=== PATIENT | female | born 2000 | race Caucasian/White ===

== ENCOUNTER 2020-08-04 18:08 | Emergency (ER) | payer OTHER, SELFPAY ==
--- NOTE | ~2020-08-04 | XR_ITS ---
EXAMINATION: XR foot LT min 3V DATE: 08/04/2020 18:20 INDICATION: Dorsal and lateral left foot and posterior ankle pain TECHNIQUE: Dorsoplantar, two oblique and lateral views of the left foot were obtained. COMPARISON: Left ankle radiographs dated 03/18/2016 FINDINGS: Alignment is normal. No fracture. Joint spaces are normal. There are few small corticated ossicles pr ojecting posterior to the left ankle which could represent either degenerative loose bodies in the po sterior recess of the joint or heterotopic ossification related to chronic soft tissue injury. Soft t issues are otherwise unremarkable. IMPRESSION: 1. No osseous abnormality. Reviewed, dictated and finalized at location A. O REGULATOR INSPECTOR IMPRESSION: 1. No osseous abnormality.
[2020-08-04 18:21] VITALS: BP 153/92; PULSE 89; RESP 16; TEMP 36.8; O2SAT 99
--- NOTE | 2020-08-04 18:55 | ED.LOWEXIN ---
HPI - Extremity Injury (Lower) General Chief Complaint: Extremity Injury, Lower Stated Complaint: left foot pain Time Seen by Provider: 08/04/20 18:24 Source: patient and RN notes reviewed Mode of arrival: ambulatory Limitations: no limitations History of Present Illness HPI Narrative: Patient presents today complaining of left foot pain. States she was entering a shower with her right foot forward, striking her left foot against the bathtub 3 days ago and possibly twisting it in the process. Since that time, she has been experiencing pain to the left ankle and foot with no additional injury. She did just get back from [place] where they drove. She assures that they got out of the car every hour to walk around as she was traveling with children. Denies calf pain, color change of the leg or foot, shortness of breath. Reports that her left foot and ankle have been cold today and is also reporting some numbness to her left 2nd toe. She has been icing and elevating her foot. She has been taking tylenol and motrin for pain. Related Data Home Medications Medication Instructions Recorded Confirmed No Home Medications 08/04/20 08/04/20 Allergies Allergy/AdvReac Type Severity Reaction Status Date / Time No Known Allergies Allergy Verified 08/04/20 18:13 Review of Systems Review of Systems: Narrative: CONSTITUTIONAL: Denies body aches, fever, chills, or sweats. EYES: Denies visual changes, redness, or discharge. ENT: Denies rhinorrhea, congestion, sore throat, or otalgia. CARDIOVASCULAR: Denies chest pain, palpitations, or edema. RESPIRATORY: Denies cough or dyspnea. GASTROINTESTINAL: Denies abdominal pain, nausea, vomiting, or diarrhea. GENITOURINARY: Denies dysuria or hematuria. SKIN: Denies rash, itching, or wounds. MUSCULOSKELETAL: Denies back pain, or myalgia. + Left foot and ankle pain NEUROLOGIC: Denies headache, tingling, or weakness. + Left foot numbness PSYCH: Denies depression or anxiety. PMFSH Social History Social History Gender identity (if verbalized by the patient): Female Comments At time of signature, I have reviewed and agree with nursing past medical, surgical, social and family history unless otherwise noted. Please see nursing chart for further information. There is no relevant family history pertinent to the presenting complaint Exam Narrative: Exam Narrative: GENERAL: Well-appearing, well-nourished, and in no acute distress. HEAD: Normocephalic, atraumatic. EYES: EOMI. No redness or drainage. Conjunctivae normal. ENT: Mucous membranes pink and moist. NECK: Normal AROM. CHEST: No respiratory distress. EXTREMITIES: Left ankle: Tenderness to the anterior ankle and mild soft tissue tenderness to the lateral malleolus with mild to moderate localized soft tissue swelling. No tenderness to the medial malleolus or Achilles tendon. No tenderness to the left calf. Tenderness to the medial foot, just distal to the medial malleolus. This area is without edema, ecchymosis, erythema. Distal sensation is intact in all toes. Capillary refill normal. Pedal pulses normal bilaterally. Full AROM of the ankle with mild increased pain in the ankle. Full AROM of all toes. Tenderness to the 2nd toe without deformity, ecchymosis, or edema. No color change to leg, foot, or toes. -homans. Foot push and pulls equal and strong bilaterally. Left foot is somewhat cooler to touch. Left foot exam normal. SKIN: Warm, dry, no rash. Capillary refill normal. Normal skin turgor. NEURO: No focal deficits. Alert and oriented x3. Gait steady. PSYCH: Normal affect. No signs of depression or anxiety. Course Vital Signs Vital signs: Vital Signs Temperature 98.2 F 08/04/20 18:21 Pulse Rate 89 08/04/20 18:21 Respiratory Rate 16 08/04/20 18:21 Blood Pressure 153/92 H 08/04/20 18:21 Pulse Oximetry 99 08/04/20 18:21 Temperature 98.2 F 08/04/20 18:21 Pulse Rate 89 08/04/20 18:21 Respiratory R
== END 2020-08-04 19:10 | disposition home or self-care (01) ==
PROVIDERS: Emergency Provider Nurse Practitioner
DX: S93.402A Sprain of unspecified ligament of left ankle, initial encounter (principal); W22.09XA Striking against other stationary object, initial encounter; S93.602A Unspecified sprain of left foot, initial encounter
CPT/HCPCS: 73630; 99213; G0463

== ENCOUNTER 2022-09-18 10:23 | Outpatient (RCR) | payer OTHER, SELFPAY ==
[2022-09-18 12:51] LABS: Hematocrit 37.4 % (37.0-47.0); Hemoglobin 12.7 g/dL (12.0-15.0)
[2022-09-18 13:06] LABS: Glucose 1 Hour 111 mg/dL
[2022-09-18 13:46] LABS: HIV 1/2 Ab P24 Ag Result Negative (Negative)
[2022-09-18] MEDS: RHO(D) IMMUNE GLOBULIN 300 MCG/2 ML SYRINGE IM (16:33)
== END 2022-12-17 23:59 | disposition home or self-care (01) ==
LOC: ANHLAB 10:23
PROVIDERS: Visit Provider Advanced Practice Midwife
DX: Z11.4 Encounter for screening for human immunodeficiency virus [HIV] (principal); Z29.13 Encounter for prophylactic Rho(D) immune globulin; O36.0130 Maternal care for anti-D [Rh] antibodies, third trimester, not applicable or unspecified; Z3A.00 Weeks of gestation of pregnancy not specified
CPT/HCPCS: 36415; 85014; 85018; 85461; 86703; 86850; 86900; 86901; 90384; 96372; G0432; J2790

== ENCOUNTER 2022-11-27 22:11 | Inpatient (IN) | payer OTHER, SELFPAY ==
--- NOTE | 2022-11-27 22:11 | LDADM ---
This patient, Aliyah Weathers, was admitted to Labor/Delivery/Recovery 106 on 11/27/22 at 22:11. Plans for labor, pain management and were discussed with patient. Patient/family oriented to hospital policies and general routines including ID bracelet, bed and alarms, visiting hours, pain management, procedures, bathroom and other care routines, personal items, smoking policy, room service/diet and guest tray routines, security routines, and visiting hours. Patient/Family are encouraged to report perceived risks to care and to ask questions if they do not understand what they are told or what they should do. See [facility]BIX for further documentation.
[2022-11-27 22:19] VITALS: TEMP 36.6
[2022-11-27 22:38] LABS: Basophils Absolute Auto 0.1 K/mm3 (0.0-0.1); Basophils Percent Auto 0.5 % (0.2-1.2); Eosinophils Absolute Auto 0.1 K/mm3 (0-0.3); Eosinophils Percent Auto 0.4 % (0-4.4); Hematocrit 40.1 % (37.0-47.0); Hemoglobin 13.9 g/dL (12.0-15.0); Immature Granulocyte Absolute 0.19 K/mm3 (0.00-0.031); Immature Granulocyte Percent A 1.3 % (0-0.5); Lymphocytes Absolute Auto 3.53 K/mm3 (0.9-3.2); Lymphocytes Percent Auto 24.8 % (18.3-44.2); Mean Corpuscular HGB Conc 34.7 g/dl (32-36); Mean Corpuscular Hemoglobin 29.5 pg (26-34); Mean Corpuscular Volume 85.1 fl (80-100); Mean Platelet Volume 10.8 fl (7.4-10.4); Monocytes Absolute Auto 0.8 K/mm3 (0.1-0.6); Monocytes Percent Auto 5.8 % (2.6-8.5); Neutrophils Absolute Auto 9.6 K/mm3 (1.3-6.7); Neutrophils Percent Auto 67.2 % (45.5-73.1); Platelet Count Result 254 k/mm3 (150-375); Red Blood Count 4.71 M/mm3 (4.2-5.4); Red Cell Distribution Width 12.6 % (11.5-14.5); White Blood Count 14.2 K/mm3 (4.5-10.0)
[2022-11-27 22:39] VITALS: BP 123/67; PULSE 70
[2022-11-27 22:42] VITALS: BMI 36.2
[2022-11-27 22:47] VITALS: RESP 15; TEMP 36.4
[2022-11-28] VITALS (16 sets, daily range): BP systolic 109–147; BP diastolic 62–96; PULSE 59–99; RESP 16–18; TEMP 36.2–37.3; O2SAT 97–100
[2022-11-28] MEDS: OXYTOCIN 30 UNITS/NS 500 ML 30 UNITS/500 ML BAG 999 UNITS IV CONT (02:14)
[2022-11-28] MEDS: LIDOCAINE HCL 1% LOCAL INJ 20 ML VIAL ×2 (02:15→02:35)
--- NOTE | 2022-11-28 02:58 | WPDOBADMIT ---
Obstetrics - Admit Note Admission Note: 21 y/o G1 at 38 weeks here in spontaneous labor. record reviewed. No pertinent additions to the history and/or any subsequent changes in the physical findings that are not consistent with the expected course of the were found. Additions to the history and/or subsequent changes in the physical findings follow. None.
--- NOTE | 2022-11-28 02:59 | P.PCNOB_ITS ---
OB - Delivery Note Procedure Delivery date: 11/28/22 Procedure: Induction method: None Delivery monitor: External FHT and External Uterine Route of delivery: Episiotomy description: None Laceration Description: Periurethral (bilateral) and Vaginal (1st degree) Delivery repair: vicryl Quantitative Blood Loss (ml): 241 Anesthesia type: Local Narrative: Pt very uncomfortable during labor and delivery. Very ineffective maternal pushing. Coached and offered multiple position options. Offered pain management and pt declined multiple times. Spontaneous delivery. Mother and baby in stable conditions. [place] Baby Date of : 11/28/22 Time of : 02:04 Weeks of gestation at delivery: 38 Infant gender: Male presentation: vertex position: Left Occiput Anterior Placenta delivery description: Spontaneous Cord Vessel Description: 3 Vessels, Clamped/Cut and Delayed Cord Clamping score one minute: 9 score five minutes: 9
[2022-11-28] MEDS: WITCH HAZEL 40 PADS 1 PAD TOPICAL (03:48)
[2022-11-28] MEDS: BENZOCAINE 20% AER SPR (*SP) 56 GM CAN 1 SPRAY TOPICAL (03:49)
[2022-11-28] MEDS: IBUPROFEN 600 MG TABLET PO ×3 (03:49→21:34)
--- NOTE | 2022-11-28 04:40 | OBPPTRN ---
Patient transferred to post room #282 via w/c. Support person present. Oriented to unit, room, information board, rooming in, admission packet and security measures. Patient verbalizes understanding.
[2022-11-28] MEDS: DOCUSATE SODIUM 100 MG CAPSULE PO ×2 (08:43→16:18)
[2022-11-28] MEDS: MULTIVIT/MIN/PREN/FOL AC/IRON TABLET 1 TAB PO (08:43)
[2022-11-29 04:40] LABS: Hematocrit 36.4 % (37.0-47.0); Hemoglobin 12.1 g/dL (12.0-15.0)
[2022-11-29 04:44] VITALS: BP 128/85; TEMP 36.6
--- NOTE | 2022-11-29 08:02 | PM.OBPNVD ---
OB - PN: Subj Subjective Date/time seen: 11/29/22 08:02 Patient comments: no complaints baby status: doing well OB - PN: Obj Data Labs 11/29/22 03:50 Labs: Laboratory Results - last 24 hr 11/28/22 11/29/22 11/29/22 04:30 03:50 03:50 Hgb 12.1 Hct 36.4 L Blood Type O Negative O Negative Antibody Screen Positive TNP Antibody Identification Passive Due to RH Imm Glob Antigen Identification TNP RITA, IgG Interpret TNP RITA, Poly Interpret Neg RITA, Complement Interp TNP Baby's Blood Type O pos Baby's RITA Negative OB - PN A/P Plan day: 1 Plan: routine care Time Spent With Patient Time: Total time spent is greater than 50% in coordination of care (as documented) at patient's floor/unit and/or counseling patient: Time with patient: less than 15 minutes Review of Systems Review of Systems: All systems reviewed & are unremarkable except as noted in HPI and below Exam Narrative: Fundus firm and vaginal flow controlled. No lower ext redness, warmth, or edema. Negative homans. Const: General: comfortable Chest: Breast/axilla inspection: normal inspection of the breasts Resp: Effort & Inspection: normal respiratory effort Cardio: Rate: regular rate GI: GI Palp: Yes Soft to palpation Psych: Appearance: grossly normal Affect: normal affect Attitude: cooperative Thought content: Yes Normal thought content present Judgement: Good judgement present (Psych)
--- NOTE | 2022-11-29 08:04 | PM.OBDSVD ---
DS: Admitting Diagnosis Discharge Date 11/29/22 Admitting Diagnosis Labor DS: Discharge Diagnosis Discharge Diagnosis (1) Vaginal delivery: Code(s): O80 - Encounter for full-term uncomplicated delivery Status: Acute OB - DS: Summary OB Procedures : None OB Procedures Intrapartum: Spontaneous Vag Delivery OB Procedures: : None Time Spent with Patient Time attestation: Total time spent providing and/or coordinating discharge services: DS: Data Data Completed and Pending Labs on day of discharge: Labs from last 24 hours 11/29/22 11/29/22 11/28/22 03:50 03:50 04:30 Hgb 12.1 Hct 36.4 L Blood Type O Negative O Negative Antibody Screen TNP Positive Antibody Identification Passive Due to RH Imm Glob Antigen Identification TNP RITA, IgG Interpret TNP RITA, Poly Interpret Neg RITA, Complement Interp TNP Screen Pending Baby's Blood Type O pos Baby's RITA Negative Doses of RhIg Required Pending Discharge Plan Discharge Attending physician on discharge: Nedra Eli Consulting providers: Saima Abreu Discharging Clinician: Nedra Eli Patient Disposition: Home, Self-Care Activity: pelvic rest Diet: as tolerated Patient Instructions: Antibiotic Form Stand Alone Forms: General Discharge Information Follow-up/Referrals: Nedra Eli CNM [Certified Nurse Media Monitor] - Discharge Medications: Continued #2 Tablet 1 tablet PO DAILY Discontinued ondansetron HCl [Zofran] 4 mg Tablet 4 mg PO Q6H PRN (Reason: Nausea) Date of admission: 11/27/22 22:11 Primary Care Provider: UNKNOWN,DOCTOR Admitting Provider: Joya Green Attending physician on admission: Nedra Eli Condition: Stable
[2022-11-29 08:45] VITALS: BP 123/70; PULSE 69; RESP 16; TEMP 36.7; O2SAT 100
--- NOTE | 2022-11-29 11:11 | PC.NURSE ---
[id number] Introductions were made, then consulted with patient to assess needs related to . Mother led the conversation with her?plans to feed?her infant and the?experience so far. Mother states infant has had difficulty latching. Mother has hand expressed and syringe fed. RN recommended considering staying to get well established. was circumcised this morning. Mother is insistent on going home. Mother has initiated pumping with 1-2 pumping sessions. She has 10mls of human milk collected. Resources provided for inpatient and outpatient services with the feeding sheet, mom/baby guide, business card and name written on the white board. Mother voiced understanding of information and will call if there is a request for assistance. Reported to the primary RN. [id number] Mother works well with her with encouragement and education. Encouraged understanding of the benefits of skin to skin (demonstrating unwrapping infant and placing upright on her chest), stimulating with massage touch, changing positions to encourage wakefulness, how to watch for early feeding cues, responsive feeding, feeding on demand (aiming for 8-12 times in 24 hours, about every 2-3 hours), milk production, building/maintaining a milk supply, duration of feeding, signs of adequate intake/output and how to record on the feeding sheet. Reviewed positioning and ear, shoulder, hip alignment, supporting the breast to facilitate a deep latch, asymmetrical latch (off-center), leading with the chin with a big, open, wide gape and body close to mother. Together we attempted with football, cross cradle and laid-back cross. Infant is sleepy and reluctant. was syringe fed 10mls of the human milk rewarding big open mouth and sucking on a finger. Infant is now more alert, however; mother stimulates with touch and changing position to attempt to keep engaged. Infant latched optimally to the left breast in laid-back cross cradle position. Education given to parents of how to visualize suck/swallow ratios and listen for drinking at the breast. was able to maintain latch without discomfort to mother after initial soreness . Mother denies pinching or biting sensations. is demonstrating good rocking motion, swallowing with a great suck/swallow ratio. Nipple care reviewed with optimal latch and good positioning. Reminding mother of comfort measures of healing with a warm and wet washcloth to rinse breast, then leave open to air-dry as needed. Reviewed good handwashing when or touching the breast/nipples to prevent infection. Resources used to facilitate learning were used with the tool, mom and baby guide. Mother voiced understanding of skin to skin, stimulating with massage touch, responsive feedings, hand expressed colostrum, talking to infant to encourage if it has been 2 -2.5 hours since the start of the last , to call if does not latch, or if there is discomfort with . Mother is confident to independently latch optimally without discomfort and will pump and feed if necessary. Reminded parents to use good handwashing technique to prevent infection. Mother is feeding appropriately for growth of infant and understands stimulating infant to eat if needed. has had appropriate feedings in the last 24 hours meets the outcomes for weight, output and jaundice at this time. Reinforced understanding of milk production, transition of milk, signs of adequate intake, transition of stool, prevention/relief of engorgement, responsive watching for feeding cues, the different methods of stimulating to breastfeed 2-3 hours after the start of the last feeding, community resources (Jazlyn at Dr. Green's office), medication information reviewed per [facility] and when to call a provider using the resource of the mom and baby guide. Resources provided for inpatient/outpat
[2022-11-29] MEDS: RHO(D) IMMUNE GLOBULIN 300 MCG/2 ML SYRINGE IM (11:32)
[2022-11-29] MEDS: DOCUSATE SODIUM 100 MG CAPSULE PO (11:38)
[2022-11-29] MEDS: MULTIVIT/MIN/PREN/FOL AC/IRON TABLET 1 TAB PO (11:38)
[2022-11-29 13:47] LABS: Rapid Plasma Reagin Non-Reactive (NonReactive)
[2022-11-30 08:29] VITALS: BP 138/71; PULSE 94; RESP 18; TEMP 36.8; O2SAT 100
== END 2022-11-29 14:07 | disposition home or self-care (01) | DRG 560 ==
LOC: ANHLDR 22:21 → ANHOB2 11-28 05:11
PROVIDERS: Admitting Provider Advanced Practice Midwife; Visit Provider Advanced Practice Midwife
DX: O71.82 Other specified trauma to perineum and vulva (principal); Z37.0 Single live birth; Z3A.38 38 weeks gestation of pregnancy
CPT/HCPCS: 36415; 85014; 85018; 85025; 85461; 86592; 86850; 86880; 86900; 86901; 90384; A9270; J2590; J2790